=== PATIENT | male | born 1950 | race Asian ===

== ENCOUNTER → 2018-03-27 | Outpatient (CLI) | payer OTHER, MEDICARE | LOC: BHFA 14:00 | PROVIDERS: ATTEND Internal Medicine Interventional Cardiology | DX: I65.21 Occlusion and stenosis of right carotid artery (principal) ==

== ENCOUNTER → 2018-09-17 | Outpatient (CLI) | payer OTHER, MEDICARE | LOC: FIMAGING 11:26 | PROVIDERS: ATTEND Family Medicine | DX: M25.512 Pain in left shoulder (principal); G89.29 Other chronic pain ==